=== PATIENT | female | born 1990 | race African-American/Black ===

== ENCOUNTER 2018-07-20 20:06 | Emergency (ER) | payer MEDICAID ==
[~2018-07-20] VITALS: Ht 162.6 cm; Wt 62.0 kg
[2018-07-20 20:25] VITALS: BP 112/70
== END 2018-07-20 22:30 | disposition left against medical advice (07) ==
LOC: ER 20:06
DX: Z53.21 Procedure and treatment not carried out due to patient leaving prior to being seen by health care provider (principal); J45.909 Unspecified asthma, uncomplicated
CPT/HCPCS: 93005